=== PATIENT | female | born 1965 | race Caucasian/White ===

== ENCOUNTER 2018-01-20 07:23 | Day surgery (SDC) | payer MEDICAID ==
[~2018-01-20] VITALS: Ht 154.9 cm; Wt 90.0 kg
[~2018-01-20 07:23] MED LIST: LEVO75TA5 PO; OMEP-110 PO
[2018-01-20] MEDS ORDERED: SODIUM CHLORIDE 0.9% 1,000 ML IV SCH (07:57)
[2018-01-20 07:59] VITALS: BP 138/86
[2018-01-20] MEDS ORDERED: LISI-167 PO (08:03)
[2018-01-20] MEDS ORDERED: FLUMAZENIL 0.1 MG/1 ML, 5ML ONE (08:51)
[2018-01-20] MEDS ORDERED: NALOXONE 1 MG/ML, 2ML ONE (08:51)
[2018-01-20] MEDS ORDERED: MIDAZOLAM 1 MG/ML, 5ML ONE (08:51)
[2018-01-20] MEDS ORDERED: FENTANYL PF 100 MCG/2ML ONE (08:51)
[2018-01-20 08:53] LABS: INTERNATIONAL NORMALIZED RATIO 0.94 (0.93-1.1); PROTHROMBIN TIME 9.8 Seconds (9.6-11.5)
== END 2018-01-20 12:25 ==
LOC: OUT 07:23 → EDSTATUS 09:00 → OUT 12:25
PROVIDERS: ATTEND Internal Medicine Gastroenterology
DX: K75.81 Nonalcoholic steatohepatitis (NASH) (principal); E85.89 Other amyloidosis; I10 Essential (primary) hypertension; Z88.5 Allergy status to narcotic agent; Z98.890 Other specified postprocedural states; Z90.710 Acquired absence of both cervix and uterus; Z72.89 Other problems related to lifestyle
CPT/HCPCS: 36415; 47000; 76942; 85610; 88307; 88313; 99156; 99157; J2250; J3010; J7030; J2310